=== PATIENT | female | born 1955 | race African-American/Black ===

== ENCOUNTER 2016-08-18 19:14 | Emergency (ER) | payer MEDICARE, MEDICAID ==
[~2016-08-18] VITALS: Ht 162.6 cm; Wt 52.6 kg
[~2016-08-18 19:14] MED LIST: ACETAMINOP160 MG/5 M GT; ACETAMINOP160 MG/5 M ORAL; ACETAMINOP160 MG/52 GT; AMIKACIN S500 MG/2 M IJ; ASCORBIC ACID500 MG GT; BISACODYL5 MG RC; CATAPRES TTS-1 PATCH TDERMAL; CEFTIN250 MG ORAL; CLINDAMYCIN HC150 MG ORAL; CLOTRIMAZOLE15 GM TOPIC; DOCUSATE SODIU250 MG GT; DOXYCYCLINE HY100 M2 ORAL; DSS100 MG GT; DSS250 MG GT; FISH OIL CAP1000 MG GT; FISH OIL CAP1000 MG JT; FLAGYL500 MG ORAL; FLUCONAZOLE100 MG ORAL; GLUCOPHAGE500 MG ORAL; KEFLEX PED250 MG/5 M GT; LANTUS SOL100 UNIT/1 SUBQ; LANTUS100 UNIT/2 SQ; LEVEMIR FL100 UNIT/1 SUBQ; LEVEMIR100 UNIT/1 SUBQ; LISINOPRIL10 MG GT; LISINOPRIL20 MG GT; LISINOPRIL5 MG GT; METFORMIN HCL500 M1 GT; METFORMIN HCL500 M1 JT; METRONIDAZOLE500 MG GT; MILK OF MA400 MG/51 GT; MOM30 ML GT; MULTI-DELYN237 ML GT; MULTIVITAMINS1 EAC8 JT; MVI WITH MINERAL GT; NEXIUM20 M1 GT; OMEPRAZOLE20 M2 GT; PEPCID20 MG GT; PREDNISONE20 MG GT; PRILOSEC20 MG GT; PROSTAT 64 GT; RANITIDINE HCL150 M2 GT; RANITIDINE HCL150 MG GT; SULFAMETHOXAZO473 ML ORAL; VIT C 500 MG GT; VITAMIN C GT; VITAMIN C500 M1 JT
[2016-08-18 19:15] VITALS: BP 130/80
--- NOTE | 2016-08-18 20:57 | Emergency Room Report ---
History of Present Illness General Chief Complaint: Malfunctioning Gastric Tube Source: Medical Record, EMS Present Illness HPI 61-year-old female presents ED for evaluation. Per EMS patient pulled out her G -tube today at the long-term. Patient has cognitive delay and is unable to provide any additional history at this time. No signs of distress. No reported nausea or vomiting. No fevers or chills. No aggravating or leading factors. Denies any other associated symptoms Allergies: Coded Allergies: LEVOFLOXACIN (Verified Allergy, Severe, Rash, 06/17/14) VANCOMYCIN (Verified Allergy, Severe, Rash, 06/17/14) PIPERACILLIN SODIUM (Verified Allergy, Intermediate, Rash, 06/12/12) COPIED FROM UNCODED SECTION TAZOBACTAM SODIUM (Verified Allergy, Intermediate, Rash, 06/12/12) COPIED FROM UNCODED SECTION PENICILLIN (Unverified Allergy, Unknown, 03/11/15) PENICILLINS (Unverified Allergy, Unknown, 06/14/14) PIPERACILLIN (Unverified Allergy, Unknown, 06/14/14) TAZOBACTAM (Unverified Allergy, Unknown, 06/14/14) Uncoded Allergies: LEVAQUIN (Allergy, Unknown, 05/01/15) PENACILLIN (Allergy, Unknown, 05/01/15) VANCOMYACIN (Allergy, Unknown, 05/01/15) ZOSYN (Allergy, Unknown, 05/01/15) Patient History Past Medical History: DM, HTN, other - encephalopathy Past Surgical History: other - gtube Pertinent Family History: none Social History: Denies: alcohol use, drug use, smoking Now: No Immunizations: UTD Reviewed Nursing Documentation: PMH: Agreed, PSxH: Agreed Nursing Documentation-PMH 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,ORGANIC BRAIN SYNDOME Hx Hypertension: Yes Hx Pacemaker: No Hx Asthma: No Hx COPD: No Hx Diabetes: Yes Hx Cancer: No Hx Gastrointestinal Problems: Yes - G TUBE Hx Dialysis: No Hx Neurological Problems: Yes - ENCEPHALOPATHY Hx Cerebrovascular Accident: No Hx Transient Ischemic Attacks: No Hx Dementia: Yes Hx Alzheimer's Disease: No Hx Parkinson's Disease: No Hx Meningitis: No Hx Encephalitis: No Hx Seizures: No Hx Epilepsy: No Hx Multiple Sclerosis: No Hx Cerebral Palsy: No Hx Amyotrophic Lat Sclerosis: No Hx Guillian-[place] Syndrome: No Hx Paralysis: No Hx Peripheral Neuropathy: No Hx Spinal Cord Injury: No Hx Head Trauma: No Hx Traumatic Brain Injury: No Hx Memory Loss: Yes Hx Concentration Difficulty: Yes Hx Speech Problem: Yes - APHASIC Hx Tremors: No Hx Vertigo: No Hx Dizziness: No Hx Syncope: No Hx Headaches: No Hx Aphasia: Yes Hx Dysphasia: Yes Hx Numbness: No Hx Weakness: No Hx Fatigue: No Hx Neurologic Surgery: No Hx Brain Shunt: No Review of Systems All Other Systems: negative except mentioned in HPI Physical Exam Vital Signs Date Time Temp Pulse Resp B/P Pulse Ox O2 Delivery O2 Flow Rate FiO2 08/18/16 19:07 95.4 64 20 130/80 92 08/18/16 19:15 Room Air Sp02 EP Interpretation: reviewed, normal General Appearance: no apparent distress, alert, GCS 15, non-toxic Head: normocephalic ENT: normal ENT inspection Neck: normal inspection Respiratory: chest non-tender, lungs clear, normal breath sounds, speaking full sentences Cardiovascular #1: regular rate, rhythm, no edema Gastrointestinal: normal bowel sounds, non tender, soft, non-distended, no guarding, no rebound, other - gtube site C/D/I Rectal: deferred Genitourinary: no CVA tenderness Musculoskeletal: normal inspection Neurologic: other - encephalopathy Psychiatric: other - encephalopathy Skin: normal inspection Lymphatic: normal inspection Procedures Additional Procedure Procedure Narrative G-tube placement Patient placed on stretcher. Old G-tube is removed by deflating the balloon using syringe. G-tube site is inspected with no contraindications to G-tube placement. G-tube slowly inserted until resistance is met; G-tube balloon is slowly filled with 20 mL of normal saline and slowly retracted back until resistance is met. G-tube placement is confirmed with KUB study using Gastrografin Medical Decision Making Diagnostic Impression: Primary Impression: Malfunction of gastrostomy tube ER Course Hospital Course 61-year-old female presents to ED for G-tube placement. Pulled out G-tube at long-term Clinical course Patient placed on stretcher. After initial history and physical I replaced G- tube and inflate the balloon. G-tube placement confirmed with KUB study. Patient remained stable without any signs of distress. [facility] called and patient subsequently discharged back to facility. Diagnosis - malfunction of G tube stable and discharged back to facility. Followup with PMD. Return to ED if symptoms recur or worsen Other X-Ray Diagnostic Results Other X-Ray Diagnostic Results : X-Ray Ordered: KUB EP Interpretation: Yes Findings: no fractures, no dislocation, no soft tissue swelling, other - Gtube in place Number of Views: 1 Last Vital Signs Date Time Temp Pulse Resp B/P Pulse Ox O2 Delivery O2 Flow Rate FiO2 08/18/16 19:15 96.7 64 20 130/80 94 Room Air Status: improved Disposition: XFER SNF Condition: Stable Referrals: SADE MULLINS (PCP) Patient Instructions: Gastrostomy Tube Home Guide, Adult ELZA MOTA M.D. Aug 18, 2016 20:57
[2016-08-18 21:15] VITALS: BP 118/74
[2016-08-18 22:00] VITALS: BP 118/58
--- NOTE | 2016-08-19 10:24 | Diagnostic Imaging Report ---
Indication: Post gastrostomy replacement Technique: Supine view of the abdomen after injection of water-soluble contrast into gastrostomy Comparison: 09/17/2015 Findings: Contrast opacifies the stomach. No contrast extravasation is demonstrated. The bowel gas pattern is unremarkable. Surgical anastomotic andrea are seen in the region of the stomach. No significant interim change Impression: Satisfactory position of gastrostomy tube
== END 2016-08-18 22:05 ==
LOC: EDBD 19:14 → EMR 19:22
DX: Z43.1 Encounter for attention to gastrostomy (principal); I10 Essential (primary) hypertension; E11.9 Type 2 diabetes mellitus without complications; Z88.1 Allergy status to other antibiotic agents; Z88.0 Allergy status to penicillin
CPT/HCPCS: 43760; 74000; 99283; Q9963

== ENCOUNTER 2017-07-06 17:21 | Emergency (ER) | payer MEDICARE, MEDICAID ==
[~2017-07-06] VITALS: Ht 154.9 cm; Wt 63.5 kg
[2017-07-06 18:21] VITALS: BP 118/65
--- NOTE | 2017-07-06 20:27 | Emergency Room Report ---
History of Present Illness General Chief Complaint: Malfunctioning Gastric Tube Source: Patient, Medical Record Present Illness HPI This patient [facility] from a [facility] facility for G-tube replacement. The G-tube was dislodged. The patient is nonverbal at baseline. She is PEG tube dependent. There are no other complaints. Allergies: Coded Allergies: LEVOFLOXACIN (Verified Allergy, Severe, Rash, 06/17/14) VANCOMYCIN (Verified Allergy, Severe, Rash, 06/17/14) PIPERACILLIN SODIUM (Verified Allergy, Intermediate, Rash, 06/12/12) COPIED FROM UNCODED SECTION TAZOBACTAM SODIUM (Verified Allergy, Intermediate, Rash, 06/12/12) COPIED FROM UNCODED SECTION PENICILLIN (Unverified Allergy, Unknown, 03/11/15) PENICILLINS (Unverified Allergy, Unknown, 06/14/14) PIPERACILLIN (Unverified Allergy, Unknown, 06/14/14) TAZOBACTAM (Unverified Allergy, Unknown, 06/14/14) Uncoded Allergies: LEVAQUIN (Allergy, Unknown, 05/01/15) PENACILLIN (Allergy, Unknown, 05/01/15) VANCOMYACIN (Allergy, Unknown, 05/01/15) ZOSYN (Allergy, Unknown, 05/01/15) Patient History Past Medical History: see triage record, dementia, other - encephalopathy, developemental delay. Social History: Denies: smoking, alcohol use, drug use Reviewed Nursing Documentation: PMH: Agreed; PSxH: Agreed Nursing Documentation-PMH Past Medical History: No History, Except For 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,ORGANIC BRAIN SYNDOME Hx Hypertension: Yes Hx Pacemaker: No Hx Asthma: No Hx COPD: No Hx Diabetes: Yes Hx Cancer: No Hx Gastrointestinal Problems: Yes - G TUBE Hx Dialysis: No Hx Neurological Problems: Yes - ENCEPHALOPATHY Hx Cerebrovascular Accident: No Hx Transient Ischemic Attacks: No Hx Dementia: Yes Hx Alzheimer's Disease: No Hx Parkinson's Disease: No Hx Meningitis: No Hx Encephalitis: No Hx Seizures: No Hx Epilepsy: No Hx Multiple Sclerosis: No Hx Cerebral Palsy: No Hx Amyotrophic Lat Sclerosis: No Hx Guillian-[place] Syndrome: No Hx Paralysis: No Hx Peripheral Neuropathy: No Hx Spinal Cord Injury: No Hx Head Trauma: No Hx Traumatic Brain Injury: No Hx Memory Loss: Yes Hx Concentration Difficulty: Yes Hx Speech Problem: Yes - APHASIC Hx Tremors: No Hx Vertigo: No Hx Dizziness: No Hx Syncope: No Hx Headaches: No Hx Aphasia: Yes Hx Dysphasia: Yes Hx Numbness: No Hx Weakness: No Hx Fatigue: No Hx Neurologic Surgery: No Hx Brain Shunt: No Review of Systems All Other Systems: negative except mentioned in HPI Physical Exam Vital Signs Date Time Temp Pulse Resp B/P (MAP) Pulse Ox O2 Delivery O2 Flow Rate FiO2 07/06/17 17:18 97.3 71 20 120/69 97 Room Air 97.3 Sp02 EP Interpretation: reviewed, normal General Appearance: no apparent distress, alert, GCS 15, non-toxic Head: normocephalic, atraumatic Eyes: bilateral eye normal inspection, bilateral eye PERRL Neck: full range of motion, supple/symm/no masses Respiratory: no respiratory distress, no retraction, no accessory muscle use Gastrointestinal: normal bowel sounds, non tender, soft, non-distended, no guarding, no rebound, other - White catheter in place in G-tube site, skin around the G-tube site is erythematous and excoriated. Rectal: deferred Musculoskeletal: back normal, gait/station normal, normal range of motion Neurologic: other - At baseline, non-verbal, contracted Psychiatric: judgement/insight normal, memory normal, mood/affect normal, no suicidal/homicidal ideation Skin: normal color, no rash, warm/dry, well hydrated Medical Decision Making Diagnostic Impression: Primary Impression: Dislodged gastrostomy tube ER Course This patient presents for G-tube replacement. The G-tube was replaced in the typical manner without complication or incident. A KUB was obtained which showed Gastrografin consistent with appropriate placement in the stomach. The patient was returned to the correction facility. Other X-Ray Diagnostic Results Other X-Ray Diagnostic Results : X-Ray ordered: KUB # of Views/Limited Vs Complete: 1 View Indication: Other EP Interpretation: Yes Interpretation: other - G-tube location c/w stomach on KUB. Last Vital Signs Date Time Temp Pulse Resp B/P (MAP) Pulse Ox O2 Delivery O2 Flow Rate FiO2 07/06/17 18:21 97.3 75 20 118/65 98 Room Air 97.3 Status: improved Disposition: HOME, SELF-CARE Condition: Improved Referrals: SADE MULLINS (PCP) Patient Instructions: Gastrostomy Tube Home Guide, Adult COLIANNO,GILLIAN M D.O. Jul 06, 2017 20:27
[2017-07-06] MEDS ORDERED: Gastrograffin 30ml ORAL ONE (21:00)
[2017-07-06 23:18] VITALS: BP 118/60
[2017-07-06 23:28] VITALS: BP 118/60
--- NOTE | 2017-07-07 09:46 | Diagnostic Imaging Report ---
. Indication: Status post gastrostomy replacement Technique: Supine view of the abdomen after injection of water-soluble contrast into gastrostomy Comparison: 08/18/2016 Findings: Contrast opacifies the stomach. No contrast extravasation is demonstrated. The bowel gas pattern is unremarkable. Impression: Satisfactory position of gastrostomy tube
== END 2017-07-06 23:30 | disposition home or self-care (01) ==
LOC: EDBD 17:21 → EMR 17:50
DX: Z43.1 Encounter for attention to gastrostomy (principal); E11.9 Type 2 diabetes mellitus without complications; I10 Essential (primary) hypertension; F03.90 Unspecified dementia, unspecified severity, without behavioral disturbance, psychotic disturbance, mood disturbance, and anxiety; F79 Unspecified intellectual disabilities; Z88.0 Allergy status to penicillin; Z88.1 Allergy status to other antibiotic agents; Z88.8 Allergy status to other drugs, medicaments and biological substances
CPT/HCPCS: 43760; 74018; 99284